=== PATIENT | male | born 1980 | race Two or more races ===

== ENCOUNTER 2022-12-02 22:56 | Inpatient (IN) | payer OTHER ==
[~2022-12-02] VITALS: Ht 180.3 cm; Wt 198.7 kg
[2022-12-02] MEDS ORDERED: NOVOLOG FL100 UNIT/1 (23:16)
[2022-12-02] MEDS ORDERED: TRESIBA FL100 UNIT/1 (23:16)
[2022-12-02] MEDS ORDERED: [UNRECOGNIZED DRUG - OTHER] (23:17)
== END 2022-12-05 18:46 | disposition home or self-care (01) | DRG 378 ==
LOC: ER 22:56 → MEDJ 12-03 12:12
PROVIDERS: ADMIT Internal Medicine Hematology & Oncology; ATTEND Internal Medicine Hematology & Oncology
PROC: 30233N1 Transfusion of Nonautologous Red Blood Cells into Peripheral Vein, Percutaneous Approach (ICD-10-PCS; 2022-12-03)
PROC: BW21YZZ Computerized Tomography (CT Scan) of Abdomen and Pelvis using Other Contrast (ICD-10-PCS; 2022-12-03)
PROC: 0W3P8ZZ Control Bleeding in Gastrointestinal Tract, Via Natural or Artificial Opening Endoscopic (ICD-10-PCS; principal; 2022-12-05)
DX: K62.5 Hemorrhage of anus and rectum (principal); D68.020 Von Willebrand disease, type 2A; E10.9 Type 1 diabetes mellitus without complications; K64.4 Residual hemorrhoidal skin tags; Z20.822 Contact with and (suspected) exposure to COVID-19